=== PATIENT | male | born 1975 | race American Indian/Alaskan Native ===

== ENCOUNTER 2018-03-15 13:50 | Inpatient (IN) | payer MEDICARE ==
[2018-03-15] MEDS ORDERED: NACL 0.9% 500 ML 250 ML IV ONE (14:15)
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
[2018-03-15 14:58] LABS: Basophils % (Auto) 0.4 % (0.0-1.8); Eosinophils # (Auto) 0.1 K/mm3 (0.0-0.4); Eosinophils % (Auto) 0.8 % (0.0-4.3); Hematocrit 42.1 % (35.5-45.6); Hemoglobin 13.6 gm/dl (11.8-15.2); Lymphocytes # (Auto) 1.4 K/mm3 (1.2-5.4); Lymphocytes % (Auto) 17.9 % (13.4-35.0); Mean Corpuscular HGB Conc 32 % (32-34); Mean Corpuscular Hemoglobin 30 pg (28-32); Mean Corpuscular Volume 93 fl (84-94); Monocytes % (Auto) 12.5 % (0.0-7.3); Platelet Count 147 K/mm3 (140-440); Red Blood Count 4.53 M/mm3 (3.65-5.03)
[2018-03-15] MEDS ORDERED: MERREM 1,000 MG in NACL 0.9% 100 ML IV ONE (15:00)
[2018-03-15 15:02] LABS: INR 0.9 (0.87-1.13)
[2018-03-15 15:13] LABS: Calcium 8.9 mg/dL (8.4-10.2)
--- NOTE | 2018-03-15 15:16 | XRay Report ---
AP CHEST: HISTORY: chest pain, sepsis AP view of the chest demonstrates a normal mediastinal and cardiac contour with clear lungs and normal bony and soft tissue structures. A right IJ dual-lumen venous catheter terminates at the cavoatrial junction. IMPRESSION: Unremarkable AP chest.
--- NOTE | 2018-03-15 16:20 | History and Physical Report ---
History of Present Illness Chief complaint: positive blood cultures History of present illness: 42 YO Male with HTN, ESRD on HD(T,R,SA) presents to ED for evaluation. Pt is unable to provide detailed history, but history is provided by his . As per wift, the patient has experienced fever over the past 1 week. Pt was seen by his home health care case manager and was found to have evidence of an infected dialysis catheter. Pt has catheter removed and subsequently had a new vas cath placed in his right chest on yesterday but blood cultures grew out gram negative rods. . Pt presents to ED for evaluation. No reports of fever, chills, CP, Palpitations , NVD< syncope, trauma, skin rash, unintentional weight loss, night sweats. Pt admitted to medical floor. blood cultures ordered in ED. Past History Past Medical History: ESRD, hypertension Past Surgical History: Other (Permacath, Right foot surgery) Social history: , lives with family Family history: no significant family history (reviewed) Medications and Allergies Allergies Allergy/AdvReac Type Severity Reaction Status Date / Time No Known Allergies Allergy Unverified 03/15/18 14:03 Home Medications Medication Instructions Recorded Confirmed Last Taken Type Amlodipine Besylate [Norvasc] 5 mg PO QDAY 03/15/18 03/15/18 Unknown History Hydralazine HCl 50 mg PO TID 03/15/18 03/15/18 Unknown History Metoprolol [Lopressor] 25 mg PO Q12H 03/15/18 03/15/18 Unknown History Review of Systems Constitutional: no weight loss, no weight gain, no fever, no chills Ears, nose, mouth and throat: no ear pain, no ear discharge, no tinnitis, no decreased hearing Cardiovascular: no chest pain, no orthopnea, no palpitations, no rapid/ irregular heart beat, no edema, no syncope Respiratory: no cough, no cough with sputum, no excessive sputum, no hemoptysis Gastrointestinal: no nausea, no vomiting, no diarrhea, no constipation Genitourinary Male: no hematuria, no flank pain, no discharge, no urinary frequency, no urinary hesitancy Rectal: no pain, no incontinence Musculoskeletal: no neck stiffness, no neck pain, no shooting arm pain, no arm numbness/tingling, no low back pain, no shooting leg pain Integumentary: no rash, no pruritis, no redness, no sores, no wounds Neurological: no transient paralysis, no paralysis, no weakness, no parathesias , no numbness, no tingling, no seizures Psychiatric: no anxiety, no memory loss, no change in sleep habits, no sleep disturbances, no insomnia, no hypersomnia, no change in appetite Endocrine: no cold intolerance, no heat intolerance, no polyphagia, no excessive thirst, no polydipsia, no polyuria, no nocturia, no excessive sweating Hematologic/Lymphatic: no easy bruising, no easy bleeding, no lymphadenopathy, no lymphedema Allergic/Immunologic: no urticaria, no allergic rhinitis, no wheezing, no persistent infections, no anaphylaxis, no angioedema Exam - Constitutional Vitals: Temp Pulse Resp BP Pulse Ox 98.4 F 83 21 125/90 97 03/15/18 14:03 03/15/18 15:15 03/15/18 15:15 03/15/18 15:15 03/15/18 15:15 General appearance: Present: no acute distress, well-nourished - EENT Eyes: Present: PERRL ENT: hearing intact, clear oral mucosa - Neck Neck: Present: supple, normal ROM - Respiratory Respiratory effort: normal Respiratory: bilateral: CTA - Cardiovascular Heart Sounds: Present: S1 & S2. Absent: rub, click - Extremities Extremities: pulses symmetrical, No edema Peripheral Pulses: within normal limits - Abdominal General gastrointestinal: Present: soft, non-tender, non-distended, normal bowel sounds Male genitourinary: Present: normal - Integumentary Integumentary: Present: clear, warm, dry - Musculoskeletal Musculoskeletal: gait normal, strength equal bilaterally - Psychiatric Psychiatric: appropriate mood/affect, intact judgment & insight - Neurologic Neurologic: CNII-XII intact, moves all extremities Results - Labs CBC & Chem 7: 03/15/18 14:35 03/15/18 14:35 Labs: Abnormal lab results 03/15/18 03/15/18 Range/Units 14:35 14:35 [place] % (Auto) 12.5 H (0.0-7.3) % [place] # 1.0 H (0.0-0.8) K/mm3 Sodium 132 L (137-145) mmol/L Chloride 93.5 L (98-107) mmol/L Creatinine 5.4 H (0.8-1.5) mg/dL Assessment and Plan - Patient Problems (1) End stage renal disease Current Visit: Yes Status: Acute Plan to address problem: Nephrology consulted, dialysis as per renal team, monitor uop q shift, (2) Infection of vascular catheter Current Visit: Yes Status: Acute Qualifiers: Encounter type: initial encounter Qualified Code(s): T82.7XXA - Infection and inflammatory reaction due to other cardiac and vascular devices, implants and grafts, initial encounter Plan to address problem: Blood cultures, empiric dose of antibiotic therapy for gram negative bacteremia , CBC, Echo within 3-4 days. (3) DVT prophylaxis Current Visit: Yes Status: Acute Plan to address problem: scd to BLE while in bed.
[2018-03-15] MEDS ORDERED: ZOFRAN IV PRN (18:00)
[2018-03-15] MEDS ORDERED: TYLENOL PO PRN (18:00)
[2018-03-15] MEDS ORDERED: SODIUM CHLORIDE FLUSH SYRINGE 10 ML IV PRN (18:00)
[2018-03-15] MEDS ORDERED: PROVENTIL IH PRN (18:00)
[2018-03-15] MEDS ORDERED: NON-FORMULARY (Hydralazine Hcl [Hydralazine Hcl] 50 MG) PO SCH (20:00)
[2018-03-15] MEDS: LOPRESSOR PO SCH (21:15)
[2018-03-15] MEDS: SODIUM CHLORIDE FLUSH SYRINGE 10 ML IV SCH (23:03)
[2018-03-15] MEDS: APRESOLINE PO SCH (23:57)
[2018-03-16 05:16] LABS: Amorphous Crystals,Urine 1+; Bilirubin,Urine NEG (Negative); Blood,Urine SM (Negative); Color,Urine Yellow (Yellow); Urobilinogen,Urine < 2.0 mg/dL (<2.0)
[2018-03-16] MEDS: LOPRESSOR PO SCH ×2 (07:02→19:42)
[2018-03-16] MEDS: APRESOLINE PO SCH ×3 (07:03→22:23)
--- NOTE | 2018-03-16 07:21 | Consultation ---
History of Present Illness - Reason for Consult Consult date: 03/16/18 end stage renal disease - History of Present Illness The patient is a 42 yo male, who is well known to our service, with medical history significant for HTN and ESRD on HD (TTS) who was sent to the ER yesterday for further evaluation of positive blood culture for GNR. Patient is a poor historian. He has off and on fever for the past week. He developed rigors while on hemodialysis on 03/13 but the temperature was normal. The blood culture done on the same day came back positive for GNR. He received IV Vancomycin on 03/13. Since the dialysis catheter was not working well it was exchanged on 03/14. Denies N, V, D, abd pain, cough, SOB, CP, NARAYAN, leg swelling, dizziness, dysuria, hematuria or syncope. Past History Past Medical History: dialysis, ESRD, hypertension Medications and Allergies Allergies Allergy/AdvReac Type Severity Reaction Status Date / Time No Known Allergies Allergy Unverified 03/15/18 14:03 Home Medications Medication Instructions Recorded Confirmed Last Taken Type Amlodipine Besylate [Norvasc] 5 mg PO QDAY 03/15/18 03/15/18 Unknown History Hydralazine HCl 50 mg PO TID 03/15/18 03/15/18 Unknown History Metoprolol [Lopressor] 25 mg PO Q12H 03/15/18 03/15/18 Unknown History Active Meds: Active Medications Acetaminophen (Tylenol) 650 mg PO Q4H PRN PRN Reason: Pain MILD(1-3)/Fever >100.5/NARAYAN Albuterol (Proventil) 2.5 mg IH Q4HRT PRN PRN Reason: Shortness Of Breath Amlodipine Besylate (Norvasc) 5 mg PO QDAY [facility] Hydralazine HCl (Apresoline) 50 mg PO Q8HR [facility] Last Admin: 03/16/18 07:03 Dose: Not Given Metoprolol Tartrate (Lopressor) 25 mg PO Q12H [facility] Last Admin: 03/16/18 07:02 Dose: Not Given Ondansetron HCl (Zofran) 4 mg IV Q8H PRN PRN Reason: Nausea And Vomiting Sodium Chloride (Sodium Chloride Flush Syringe 10 Ml) 10 ml IV BID [facility] Last Admin: 03/15/18 23:03 Dose: 10 ml Sodium Chloride (Sodium Chloride Flush Syringe 10 Ml) 10 ml IV PRN PRN PRN Reason: LINE FLUSH Review of Systems Constitutional: fever, chills, sweats, no weight loss, no weight gain, no anorexia, no weakness, no poor appetite Ears, nose, mouth and throat: no epistaxis Cardiovascular: high blood pressure, no chest pain, no orthopnea, no palpitations, no edema, no syncope, no lightheadedness, no shortness of breath, no leg edema Respiratory: no cough Gastrointestinal: no abdominal pain, no nausea, no vomiting, no diarrhea, no melena Genitourinary Male: no dysuria, no hematuria Rectal: no bleeding Integumentary: no rash Neurological: no paralysis, no syncope Exam - Vital Signs Vital signs: Vital Signs Temp Pulse Resp BP Pulse Ox 98.4 F 101 H 20 120/94 99 03/15/18 14:03 03/15/18 14:03 03/15/18 14:03 03/15/18 14:03 03/15/18 14:03 - General Appearance General appearance: well-developed, well-nourished, appears stated age, other ( no distress, right IJ tunnel catheter) EENT: ATNC, PERRL, mucous membranes moist, hearing intact, vision intact Neck: Present: neck supple, trachea midline Respiratory: Clear to Ascultation Heart: regular, S1S2, no murmurs Gastrointestinal: Present: normoactive bowel sounds. Absent: tenderness, costovertebral Integumentary: no rash, warm and dry Neurologic: no focal deficit, no asterixis, alert and oriented x3, CN 3-12 intact Musculoskeletal: Present: other (no distress) Psychiatric: mood/affect appropriate, cooperative Results - Lab Results 03/15/18 14:35 03/15/18 14:35 Most recent lab results Calcium 8.9 mg/dL (8.4-10.2) 03/15/18 14:35 Assessment and Plan 1. ESRD: Continue hemodialysis three times a week. Patient is scheduled to get CT with IV contrast today. Plan to do hemodialysis later today, orders placed. 2. Gram negative bacteremia: Blood culture drawn on 03/13/2018 showed gram negative rods. ID input appreciated. 3. Hypertension: BP well controlled.
[2018-03-16] MEDS: NORVASC PO SCH ×2 (09:47→09:51)
[2018-03-16] MEDS: SODIUM CHLORIDE FLUSH SYRINGE 10 ML IV SCH ×2 (09:48→22:24)
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
[2018-03-16] MEDS ORDERED: NACL 0.9% 100 ML IV PRN (11:10)
--- NOTE | 2018-03-16 18:40 | Progress Note ---
Assessment and Plan / End stage renal disease Nephrology consulted, dialysis as per renal team / Infection of vascular catheter repeat Blood cultures, empiric dose of antibiotic therapy for gram negative bacteremia, ID consulted, plan for CT Abdomen/pelvis GNR bacteremia diagnosed as outpatient: ? source. ?HD catheter related. s/p HD catheter exchange on 03/15 as outpatient. / DVT prophylaxis scd to BLE while in bed. Physical Exam: General appearance: PT in NAD. A&XO3. Conversant. Eyes: anicteric sclerae, moist conjunctivae; no lid-lag; PERRLA HENT: Atraumatic; oropharynx clear, with moist mucous membranes and no mucosal ulcerations/no oral thrush; normal hard and soft palate. Normal external ears. Neck: Trachea midline; supple, no thyromegaly or lymphadenopathy Lungs: CTA, with normal respiratory effort and no intercostal retractions CV: RRR, S1,S2. Abdomen: Soft,NT/ND. No masses or hepatosplenomegaly. Extremities: No c/c/e. Skin: Normal temperature, turgor and texture; no rash, ulcers or subcutaneous nodules Psych: Appropriate affect, alert and oriented to person, place and time. Neuro: alert and oriented x 3. No-focal deficits. Lines: R chest HD catheter (exchanged as outpt on 03/15). Site has no erythema, tenderness or drainage. Subjective Date of service: 03/16/18 Interval history: Pt seen and examined no acute event O/n, denies any chest pain Objective - Constitutional Vitals: Vital Signs - 12hr 03/16/18 03/16/18 03/16/18 07:02 07:03 08:45 Temperature 98.7 F Pulse Rate 83 83 80 Respiratory 20 Rate Blood Pressure 113/79 113/79 124/86 O2 Sat by Pulse 100 Oximetry 03/16/18 03/16/18 03/16/18 09:51 12:09 17:00 Temperature 98.6 F 98.1 F Pulse Rate 82 84 75 Respiratory 20 18 Rate Blood Pressure 124/84 124/86 136/93 O2 Sat by Pulse 97 Oximetry 03/16/18 03/16/18 03/16/18 17:15 17:30 17:45 Temperature Pulse Rate 75 68 71 Respiratory Rate Blood Pressure 133/92 137/94 139/97 O2 Sat by Pulse Oximetry - Labs CBC & Chem 7: 03/15/18 14:35 03/15/18 14:35
[2018-03-16] MEDS: MAXIPIME 1 GM in NACL 0.9% 20 ML IV SCH (22:29)
[2018-03-17] MEDS: APRESOLINE PO SCH ×3 (05:52→22:36)
[2018-03-17] MEDS: LOPRESSOR PO SCH ×2 (06:39→22:37)
--- NOTE | 2018-03-17 08:52 | Progress Note ---
Assessment and Plan Assessment and plan: --End stage renal disease Nephrology consulted, dialysis as per renal team --Infection of vascular catheter repeat Blood cultures, empiric dose of antibiotic therapy for gram negative bacteremia, ID consulted, plan for CT Abdomen/pelvis GNR bacteremia diagnosed as outpatient: ? source. ?HD catheter related. s/p HD catheter exchange on 03/15 as outpatient. -- DVT prophylaxis scd to BLE while in bed. History Interval history: Patient seen and examined medical records reviewed Feels better no new complaints Vital signs reviewed Hospitalist Physical - Constitutional Vitals: Temp Pulse Resp BP Pulse Ox 98.5 F 85 20 127/86 99 03/17/18 08:07 03/17/18 08:07 03/17/18 08:07 03/17/18 08:07 03/17/18 08:07 General appearance: Present: no acute distress, well-nourished - EENT Eyes: Present: PERRL, EOM intact - Neck Neck: Present: supple, normal ROM - Respiratory Respiratory effort: normal Respiratory: bilateral: diminished, negative: rales, rhonchi, wheezing - Cardiovascular Rhythm: regular Heart Sounds: Present: S1 & S2 - Extremities Extremities: no ischemia, No edema - Abdominal General gastrointestinal: soft, non-tender, non-distended, normal bowel sounds - Integumentary Integumentary: Present: clear, warm - Psychiatric Psychiatric: appropriate mood/affect, cooperative - Neurologic Neurologic: CNII-XII intact, moves all extremities Results - Labs CBC & Chem 7: 03/15/18 14:35 03/15/18 14:35 Labs: Laboratory Last Values WBC 7.6 K/mm3 (4.5-11.0) 03/15/18 14:35 RBC 4.53 M/mm3 (3.65-5.03) 03/15/18 14:35 Hgb 13.6 gm/dl (11.8-15.2) 03/15/18 14:35 Hct 42.1 % (35.5-45.6) 03/15/18 14:35 MCV 93 fl (84-94) 03/15/18 14:35 MCH 30 pg (28-32) 03/15/18 14:35 MCHC 32 % (32-34) 03/15/18 14:35 RDW 15.0 % (13.2-15.2) 03/15/18 14:35 Plt Count 147 K/mm3 (140-440) 03/15/18 14:35 Lymph % (Auto) 17.9 % (13.4-35.0) 03/15/18 14:35 [place] % (Auto) 12.5 % (0.0-7.3) H 03/15/18 14:35 Eos % (Auto) 0.8 % (0.0-4.3) 03/15/18 14:35 Baso % (Auto) 0.4 % (0.0-1.8) 03/15/18 14:35 Lymph # 1.4 K/mm3 (1.2-5.4) 03/15/18 14:35 [place] # 1.0 K/mm3 (0.0-0.8) H 03/15/18 14:35 Eos # 0.1 K/mm3 (0.0-0.4) 03/15/18 14:35 Baso # 0.0 K/mm3 (0.0-0.1) 03/15/18 14:35 Seg Neutrophils % 68.4 % (40.0-70.0) 03/15/18 14:35 Seg Neutrophils # 5.2 K/mm3 (1.8-7.7) 03/15/18 14:35 PT 12.6 Sec. (12.2-14.9) 03/15/18 14:35 INR 0.90 (0.87-1.13) 03/15/18 14:35 VBG pH 7.361 (7.320-7.420) 03/15/18 14:35 Sodium 132 mmol/L (137-145) L 03/15/18 14:35 Potassium 3.8 mmol/L (3.6-5.0) 03/15/18 14:35 Chloride 93.5 mmol/L (98-107) L 03/15/18 14:35 Carbon Dioxide 25 mmol/L (22-30) 03/15/18 14:35 Anion Gap 17 mmol/L 03/15/18 14:35 BUN 17 mg/dL (9-20) 03/15/18 14:35 Creatinine 5.4 mg/dL (0.8-1.5) H 03/15/18 14:35 Estimated GFR 12 ml/min 03/15/18 14:35 BUN/Creatinine Ratio 3 % 03/15/18 14:35 Glucose 95 mg/dL (75-100) 03/15/18 14:35 Lactic Acid 0.40 mmol/L (0.7-2.0) L 03/15/18 17:18 Calcium 8.9 mg/dL (8.4-10.2) 03/15/18 14:35 Total Bilirubin 0.20 mg/dL (0.1-1.2) 03/15/18 14:35 AST 15 units/L (5-40) 03/15/18 14:35 ALT 12 units/L (7-56) 03/15/18 14:35 Alkaline Phosphatase 68 units/L (35-129) 03/15/18 14:35 Total Protein 8.0 g/dL (6.3-8.2) 03/15/18 14:35 Albumin 4.0 g/dL (3.9-5) 03/15/18 14:35 Albumin/Globulin Ratio 1.0 % 03/15/18 14:35 Urine Color Yellow (Yellow) 03/15/18 04:30 Urine Turbidity Clear (Clear) 03/15/18 04:30 Urine pH 6.0 (5.0-7.0) 03/15/18 04:30 Ur Specific [place] 1.005 (1.003-1.030) 03/15/18 04:30 Urine Protein 30 mg/dl mg/dL (Negative) 03/15/18 04:30 Urine Glucose (UA) Neg mg/dL (Negative) 03/15/18 04:30 Urine Ketones Neg mg/dL (Negative) 03/15/18 04:30 Urine Blood Sm (Negative) 03/15/18 04:30 Urine Nitrite Neg (Negative) 03/15/18 04:30 Urine Bilirubin Neg (Negative) 03/15/18 04:30 Urine Urobilinogen < 2.0 mg/dL (<2.0) 03/15/18 04:30 Ur Leukocyte Esterase Neg (Negative) 03/15/18 04:30 Urine WBC (Auto) 2.0 /HPF (0.0-6.0) 03/15/18 04:30 Urine RBC (Auto) 3.0 /HPF (0.0-6.0) 03/15/18 04:30 U Epithel Cells (Auto) < 1.0 /HPF (0-13.0) 03/15/18 04:30 Amorphous Crystals 1+ 03/15/18 04:30
--- NOTE | 2018-03-17 09:19 | Progress Note ---
Assessment and Plan ESRD - Pt says his outpt HD schedule is TTS, would therefore dialyze today per schedule Lytes - Sodium-modeling on HD Bacteremia - S/p permcath exchange. Abx per ID Subjective Date of service: 03/17/18 Interval history: No complaints Objective - Vital Signs Vital signs: Vital Signs - 12hr 03/16/18 03/16/18 03/16/18 22:00 22:23 23:33 Temperature 98.5 F Pulse Rate 75 87 Respiratory 16 Rate Blood Pressure 147/105 138/103 O2 Sat by Pulse 96 99 Oximetry 03/17/18 03/17/18 03/17/18 03:33 05:45 05:52 Temperature 98.8 F Pulse Rate 77 76 76 Respiratory 16 Rate Blood Pressure 106/76 115/84 115/84 O2 Sat by Pulse 97 98 Oximetry 03/17/18 03/17/18 06:39 08:07 Temperature 98.5 F Pulse Rate 76 85 Respiratory 20 Rate Blood Pressure 115/84 127/86 O2 Sat by Pulse 99 Oximetry - General Appearance General appearance: other (Awake & alert. RIJ Permcath in place) EENT: PERRL Neck: no JVD Respiratory: Present: Other (Good air entry) Cardiology: regular, S1S2 Gastrointestinal: normal Neurologic: no focal deficit - Lab 03/15/18 14:35 03/15/18 14:35 Most recent lab results Calcium 8.9 mg/dL (8.4-10.2) 03/15/18 14:35
[2018-03-17] MEDS ORDERED: HEPARIN IV PRN (09:20)
[2018-03-17] MEDS ORDERED: PROCRIT IV PRN (09:20)
[2018-03-17] MEDS ORDERED: NACL 0.9% 100 ML IV PRN (09:20)
[2018-03-17] MEDS ORDERED: HEPARIN 10,000 UNITS/10 ML IV PRN (09:20)
[2018-03-17] MEDS: NORVASC PO SCH (10:21)
[2018-03-17] MEDS: SODIUM CHLORIDE FLUSH SYRINGE 10 ML IV SCH ×2 (10:22→22:35)
[2018-03-17] MEDS: MAXIPIME 1 GM in NACL 0.9% 20 ML IV SCH (15:22)
[2018-03-17] MEDS ORDERED: NACL 0.9 (PRIMING MACHINE ONLY DIALYSIS) MC ONE (17:36)
[2018-03-18] MEDS: APRESOLINE PO SCH (06:05)
[2018-03-18 06:27] LABS: Basophils # (Auto) 0.1 K/mm3 (0.0-0.1); Basophils % (Auto) 0.7 % (0.0-1.8); Eosinophils # (Auto) 0.1 K/mm3 (0.0-0.4); Eosinophils % (Auto) 1.6 % (0.0-4.3); Hematocrit 40.3 % (35.5-45.6); Hemoglobin 13.1 gm/dl (11.8-15.2); Lymphocytes # (Auto) 1.7 K/mm3 (1.2-5.4); Lymphocytes % (Auto) 23.1 % (13.4-35.0); Mean Corpuscular HGB Conc 32 % (32-34); Mean Corpuscular Hemoglobin 30 pg (28-32); Mean Corpuscular Volume 92 fl (84-94); Monocytes # (Auto) 0.8 K/mm3 (0.0-0.8); Monocytes % (Auto) 10.5 % (0.0-7.3); Platelet Count 187 K/mm3 (140-440); Red Blood Count 4.36 M/mm3 (3.65-5.03); Red Cell Distribution Width 15.1 % (13.2-15.2)
[2018-03-18 07:06] LABS: Albumin 3.7 g/dL (3.9-5)
[2018-03-18] MEDS: LOPRESSOR PO SCH ×2 (09:45→22:38)
[2018-03-18] MEDS: NORVASC PO SCH (09:46)
[2018-03-18] MEDS: SODIUM CHLORIDE FLUSH SYRINGE 10 ML IV SCH ×2 (10:00→22:39)
--- NOTE | 2018-03-18 11:23 | Progress Note ---
Assessment and Plan ESRD - Tolerated HD yesterday, Next HD Lytes - F/u labs Bacteremia - S/p permcath exchange. Abx per ID Subjective Date of service: 03/18/18 Interval history: No complaints Objective - Vital Signs Vital signs: Vital Signs - 12hr 03/18/18 03/18/18 03/18/18 04:14 06:05 07:39 Temperature 98.7 F 98.3 F Pulse Rate 80 72 73 Respiratory 16 19 Rate Blood Pressure 108/78 110/70 113/75 O2 Sat by Pulse 98 99 Oximetry 03/18/18 03/18/18 09:45 09:46 Temperature Pulse Rate 73 73 Respiratory Rate Blood Pressure 113/75 113/75 O2 Sat by Pulse Oximetry - General Appearance General appearance: other (Awake &alert) Neck: no JVD Respiratory: Present: Clear to Ascultation Cardiology: regular, S1S2 Gastrointestinal: normal - Lab 03/18/18 05:39 03/18/18 05:39 Most recent lab results Calcium 9.0 mg/dL (8.4-10.2) 03/18/18 05:39 Phosphorus 4.20 mg/dL (2.5-4.5) 03/18/18 05:39 Magnesium 1.90 mg/dL (1.7-2.3) 03/18/18 05:39
[2018-03-18] MEDS: MAXIPIME 1 GM in NACL 0.9% 20 ML IV SCH (16:03)
--- NOTE | 2018-03-18 19:20 | Progress Note ---
Assessment and Plan Assessment and plan: --End stage renal disease Nephrology following dialysis per schedule[TTS] --Infection of vascular catheter; diagnosis outpatient prior to admission repeat Blood cultures negative to date empiric dose of antibiotic therapy for gram negative bacteremia, ID following , continue cefepime , CT Abdomen/pelvis reviewed GNR bacteremia diagnosed as outpatient: ? source. ?HD catheter related. s/p HD catheter exchange on 03/15 as outpatient. -- DVT prophylaxis Heparin renal dose Results and recommendations noted and appreciated Closely monitor History Interval history: Patient seen and examined medical records reviewed Patient feels better no new complaints No new events reported by the nursing vital signs reviewed stable Hospitalist Physical - Constitutional Vitals: Temp Pulse Resp BP Pulse Ox 98.7 F 78 19 109/74 98 03/18/18 14:52 03/18/18 14:52 03/18/18 14:52 03/18/18 14:52 03/18/18 14:52 General appearance: Present: no acute distress, well-nourished - EENT Eyes: Present: PERRL, EOM intact - Neck Neck: Present: supple, normal ROM - Respiratory Respiratory effort: normal Respiratory: bilateral: diminished, negative: rales, rhonchi, wheezing - Cardiovascular Rhythm: regular Heart Sounds: Present: S1 & S2 - Extremities Extremities: no ischemia, No edema - Abdominal General gastrointestinal: soft, non-tender, non-distended, normal bowel sounds - Integumentary Integumentary: Present: clear, warm - Psychiatric Psychiatric: appropriate mood/affect, cooperative - Neurologic Neurologic: CNII-XII intact, moves all extremities Results - Labs CBC & Chem 7: 03/18/18 05:39 03/19/18 05:45 Labs: Laboratory Last Values WBC 7.5 K/mm3 (4.5-11.0) 03/18/18 05:39 RBC 4.36 M/mm3 (3.65-5.03) 03/18/18 05:39 Hgb 13.1 gm/dl (11.8-15.2) 03/18/18 05:39 Hct 40.3 % (35.5-45.6) 03/18/18 05:39 MCV 92 fl (84-94) 03/18/18 05:39 MCH 30 pg (28-32) 03/18/18 05:39 MCHC 32 % (32-34) 03/18/18 05:39 RDW 15.1 % (13.2-15.2) 03/18/18 05:39 Plt Count 187 K/mm3 (140-440) 03/18/18 05:39 Lymph % (Auto) 23.1 % (13.4-35.0) 03/18/18 05:39 [place] % (Auto) 10.5 % (0.0-7.3) H 03/18/18 05:39 Eos % (Auto) 1.6 % (0.0-4.3) 03/18/18 05:39 Baso % (Auto) 0.7 % (0.0-1.8) 03/18/18 05:39 Lymph # 1.7 K/mm3 (1.2-5.4) 03/18/18 05:39 [place] # 0.8 K/mm3 (0.0-0.8) 03/18/18 05:39 Eos # 0.1 K/mm3 (0.0-0.4) 03/18/18 05:39 Baso # 0.1 K/mm3 (0.0-0.1) 03/18/18 05:39 Seg Neutrophils % 64.1 % (40.0-70.0) 03/18/18 05:39 Seg Neutrophils # 4.8 K/mm3 (1.8-7.7) 03/18/18 05:39 PT 12.6 Sec. (12.2-14.9) 03/15/18 14:35 INR 0.90 (0.87-1.13) 03/15/18 14:35 VBG pH 7.361 (7.320-7.420) 03/15/18 14:35 Sodium 142 mmol/L (137-145) D 03/18/18 05:39 Potassium 4.5 mmol/L (3.6-5.0) 03/18/18 05:39 Chloride 99.4 mmol/L (98-107) 03/18/18 05:39 Carbon Dioxide 29 mmol/L (22-30) 03/18/18 05:39 Anion Gap 18 mmol/L 03/18/18 05:39 BUN 24 mg/dL (9-20) H 03/18/18 05:39 Creatinine 6.0 mg/dL (0.8-1.5) H 03/18/18 05:39 Estimated GFR 12 ml/min 03/18/18 05:39 BUN/Creatinine Ratio 4 % 03/18/18 05:39 Glucose 85 mg/dL (75-100) 03/18/18 05:39 Lactic Acid 0.40 mmol/L (0.7-2.0) L 03/15/18 17:18 Calcium 9.0 mg/dL (8.4-10.2) 03/18/18 05:39 Phosphorus 4.20 mg/dL (2.5-4.5) 03/18/18 05:39 Magnesium 1.90 mg/dL (1.7-2.3) 03/18/18 05:39 Total Bilirubin 0.20 mg/dL (0.1-1.2) 03/18/18 05:39 AST 10 units/L (5-40) 03/18/18 05:39 ALT 8 units/L (7-56) 03/18/18 05:39 Alkaline Phosphatase 55 units/L (35-129) 03/18/18 05:39 Total Protein 6.9 g/dL (6.3-8.2) 03/18/18 05:39 Albumin 3.7 g/dL (3.9-5) L 03/18/18 05:39 Albumin/Globulin Ratio 1.2 % 03/18/18 05:39 Urine Color Yellow (Yellow) 03/15/18 04:30 Urine Turbidity Clear (Clear) 03/15/18 04:30 Urine pH 6.0 (5.0-7.0) 03/15/18 04:30 Ur Specific [place] 1.005 (1.003-1.030) 03/15/18 04:30 Urine Protein 30 mg/dl mg/dL (Negative) 03/15/18 04:30 Urine Glucose (UA) Neg mg/dL (Negative) 03/15/18 04:30 Urine Ketones Neg mg/dL (Negative) 03/15/18 04:30 Urine Blood Sm (Negative) 03/15/18 04:30 Urine Nitrite Neg (Negative) 03/15/18 04:30 Urine Bilirubin Neg (Negative) 03/15/18 04:30 Urine Urobilinogen < 2.0 mg/dL (<2.0) 03/15/18 04:30 Ur Leukocyte Esterase Neg (Negative) 03/15/18 04:30 Urine WBC (Auto) 2.0 /HPF (0.0-6.0) 03/15/18 04:30 Urine RBC (Auto) 3.0 /HPF (0.0-6.0) 03/15/18 04:30 U Epithel Cells (Auto) < 1.0 /HPF (0-13.0) 03/15/18 04:30 Amorphous Crystals 1+ 03/15/18 04:30
[2018-03-18] MEDS: HEPARIN SUB-Q SCH (22:28)
[2018-03-19] MEDS: LOPRESSOR PO SCH ×2 (06:35→20:12)
[2018-03-19 06:43] LABS: Calcium 8.7 mg/dL (8.4-10.2)
--- NOTE | 2018-03-19 07:00 | Progress Note ---
Assessment and Plan 1. ESRD: Continue hemodialysis three times a week. Patient was last dialyzed on 03/16/2018. Plan to do hemodialysis tomorrow at the outpatient center. 2. Gram negative bacteremia: Final results: Entrobacter Clocae. Sensitive to Zosyn, Ceftazidine, Ceftriaxone, Cefepime, Bactrim, Levofloxacin, Imipenem, Gentamicin, Tobramycin and Ciprofloxacin. D/w . 3. Hypertension: BP well controlled. Subjective Date of service: 03/19/18 Interval history: Patient is doing ok. Objective - Vital Signs Vital signs: Vital Signs - 12hr 03/18/18 03/18/18 03/18/18 19:55 22:38 23:39 Temperature 98.7 F 98.6 F Pulse Rate 83 81 84 Respiratory 18 19 Rate Blood Pressure 127/83 123/87 119/88 O2 Sat by Pulse 97 97 Oximetry 03/19/18 03/19/18 04:07 06:35 Temperature 98.6 F Pulse Rate 80 76 Respiratory 16 Rate Blood Pressure 118/79 112/74 O2 Sat by Pulse 96 Oximetry - General Appearance General appearance: well-developed, well-nourished, appears stated age, other ( no distress, right IJ tunnel catheter) EENT: ATNC, PERRL, hearing intact, vision intact Neck: supple Respiratory: Present: Clear to Ascultation Cardiology: regular, S1S2, no murmurs Gastrointestinal: normoactive bowel sounds, no tenderness Integumentary: no rash Neurologic: no focal deficit, no asterixis, alert and oriented x3 Musculoskeletal: other (no edema) Psychiatric: cooperative - Lab 03/18/18 05:39 03/19/18 05:45 Most recent lab results Calcium 8.7 mg/dL (8.4-10.2) 03/19/18 05:45 Phosphorus 4.20 mg/dL (2.5-4.5) 03/18/18 05:39 Magnesium 1.90 mg/dL (1.7-2.3) 03/18/18 05:39
--- NOTE | 2018-03-19 09:17 | Progress Note ---
Assessment and Plan Assessment and plan: --End stage renal disease Nephrology consulted, dialysis as per renal team --Infection of vascular catheter repeat Blood cultures, empiric dose of antibiotic therapy for gram negative bacteremia, ID following ,on cefepime , ID change antibiotics to Cipro 500 daily GNR bacteremia diagnosed as outpatient: ? source. ?HD catheter related. s/p HD catheter exchange on 03/15 as outpatient. --Abnormal CT abdomen findings; abnormal density left side of the paraspinal musculature Possible hematoma syndrome or abscess Check abdominal ultrasound -- DVT prophylaxis Heparin renal dose Closely monitor the patient Follow-up abdominal ultrasound Possible discharge home tomorrow if stable History Interval history: Patient seen and examined medical records reviewed No new events reported Patient feels better no new complaints Patient is on cefepime, for catheter related gram-negative infection[outpatient prior to admission] Vital signs reviewed Initially patient was cleared for discharge by ID, however abdominal CT Findings of normal, further evaluation with abdominal ultrasound DC held, continue Cipro and other supportive care Hospitalist Physical - Constitutional Vitals: Temp Pulse Resp BP Pulse Ox 98.6 F 64 20 124/85 98 03/19/18 07:39 03/19/18 07:39 03/19/18 07:39 03/19/18 07:39 03/19/18 07:39 General appearance: Present: no acute distress, well-nourished - EENT Eyes: Present: PERRL, EOM intact - Neck Neck: Present: supple, normal ROM - Respiratory Respiratory effort: normal Respiratory: bilateral: diminished, negative: rales, rhonchi, wheezing - Cardiovascular Rhythm: regular Heart Sounds: Present: S1 & S2 - Extremities Extremities: no ischemia, No edema - Abdominal General gastrointestinal: soft, non-tender, non-distended, normal bowel sounds - Integumentary Integumentary: Present: clear, warm - Psychiatric Psychiatric: appropriate mood/affect, cooperative - Neurologic Neurologic: CNII-XII intact, moves all extremities Results - Labs CBC & Chem 7: 03/18/18 05:39 03/19/18 05:45 Labs: Laboratory Last Values WBC 7.5 K/mm3 (4.5-11.0) 03/18/18 05:39 RBC 4.36 M/mm3 (3.65-5.03) 03/18/18 05:39 Hgb 13.1 gm/dl (11.8-15.2) 03/18/18 05:39 Hct 40.3 % (35.5-45.6) 03/18/18 05:39 MCV 92 fl (84-94) 03/18/18 05:39 MCH 30 pg (28-32) 03/18/18 05:39 MCHC 32 % (32-34) 03/18/18 05:39 RDW 15.1 % (13.2-15.2) 03/18/18 05:39 Plt Count 187 K/mm3 (140-440) 03/18/18 05:39 Lymph % (Auto) 23.1 % (13.4-35.0) 03/18/18 05:39 [place] % (Auto) 10.5 % (0.0-7.3) H 03/18/18 05:39 Eos % (Auto) 1.6 % (0.0-4.3) 03/18/18 05:39 Baso % (Auto) 0.7 % (0.0-1.8) 03/18/18 05:39 Lymph # 1.7 K/mm3 (1.2-5.4) 03/18/18 05:39 [place] # 0.8 K/mm3 (0.0-0.8) 03/18/18 05:39 Eos # 0.1 K/mm3 (0.0-0.4) 03/18/18 05:39 Baso # 0.1 K/mm3 (0.0-0.1) 03/18/18 05:39 Seg Neutrophils % 64.1 % (40.0-70.0) 03/18/18 05:39 Seg Neutrophils # 4.8 K/mm3 (1.8-7.7) 03/18/18 05:39 PT 12.6 Sec. (12.2-14.9) 03/15/18 14:35 INR 0.90 (0.87-1.13) 03/15/18 14:35 VBG pH 7.361 (7.320-7.420) 03/15/18 14:35 Sodium 142 mmol/L (137-145) 03/19/18 05:45 Potassium 4.4 mmol/L (3.6-5.0) 03/19/18 05:45 Chloride 101.4 mmol/L (98-107) 03/19/18 05:45 Carbon Dioxide 24 mmol/L (22-30) 03/19/18 05:45 Anion Gap 21 mmol/L 03/19/18 05:45 BUN 42 mg/dL (9-20) H 03/19/18 05:45 Creatinine 7.6 mg/dL (0.8-1.5) H 03/19/18 05:45 Estimated GFR 9 ml/min 03/19/18 05:45 BUN/Creatinine Ratio 6 % 03/19/18 05:45 Glucose 100 mg/dL (75-100) 03/19/18 05:45 Lactic Acid 0.40 mmol/L (0.7-2.0) L 03/15/18 17:18 Calcium 8.7 mg/dL (8.4-10.2) 03/19/18 05:45 Phosphorus 4.20 mg/dL (2.5-4.5) 03/18/18 05:39 Magnesium 1.90 mg/dL (1.7-2.3) 03/18/18 05:39 Total Bilirubin 0.20 mg/dL (0.1-1.2) 03/18/18 05:39 AST 10 units/L (5-40) 03/18/18 05:39 ALT 8 units/L (7-56) 03/18/18 05:39 Alkaline Phosphatase 55 units/L (35-129) 03/18/18 05:39 Total Protein 6.9 g/dL (6.3-8.2) 03/18/18 05:39 Albumin 3.7 g/dL (3.9-5) L 03/18/18 05:39 Albumin/Globulin Ratio 1.2 % 03/18/18 05:39 Urine Color Yellow (Yellow) 03/15/18 04:30 Urine Turbidity Clear (Clear) 03/15/18 04:30 Urine pH 6.0 (5.0-7.0) 03/15/18 04:30 Ur Specific [place] 1.005 (1.003-1.030) 03/15/18 04:30 Urine Protein 30 mg/dl mg/dL (Negative) 03/15/18 04:30 Urine Glucose (UA) Neg mg/dL (Negative) 03/15/18 04:30 Urine Ketones Neg mg/dL (Negative) 03/15/18 04:30 Urine Blood Sm (Negative) 03/15/18 04:30 Urine Nitrite Neg (Negative) 03/15/18 04:30 Urine Bilirubin Neg (Negative) 03/15/18 04:30 Urine Urobilinogen < 2.0 mg/dL (<2.0) 03/15/18 04:30 Ur Leukocyte Esterase Neg (Negative) 03/15/18 04:30 Urine WBC (Auto) 2.0 /HPF (0.0-6.0) 03/15/18 04:30 Urine RBC (Auto) 3.0 /HPF (0.0-6.0) 03/15/18 04:30 U Epithel Cells (Auto) < 1.0 /HPF (0-13.0) 03/15/18 04:30 Amorphous Crystals 1+ 03/15/18 04:30
--- NOTE | 2018-03-19 09:17 | Progress Note ---
Assessment and Plan Assessment: 1) Enterobacter bacteremia diagnosed as outpatient: ? source. ?HD catheter related. -s/p HD catheter exchange on 03/15 as outpatient. -03/12 HD center blood cx + Enterobacter cloacae sens to fortaz, gentamicin and levaquin/cipro -03/15 blood cx negative -CT 03/16 pending 2) ESRD on HD Plan: -Stop cefepime -Start ciprofloxacin 500 mg PO qday total 14 days until 03/29/18 -obtain survaillance blood cx a week after finishing po cipro on HD Ok to D/C from ID stand point. I am signing off Discussed with Dr Cruz Thank you for your consultation, will follow up with you. Paloma Ochoa MD Infectious Diseases Specialist [facility] ([facility]) M [phone] Subjective Date of service: 03/19/18 Principal diagnosis: Enterobacter bacteremia Interval history: Feels better. No complaints. No fever Microbiology: Blood cultures: 03/15 pending 03/12 HD center blood cx + Enterobacter cloacae sens to fortaz, gentamicin and levaquin/cipro Current Antimicrobials: Meropenem x 1 03/15 Objective - Exam Narrative Exam: Narrative exam: General appearance: PT in NAD. A&XO3. Conversant. Eyes: anicteric sclerae, moist conjunctivae; no lid-lag; PERRLA HENT: Atraumatic; oropharynx clear, with moist mucous membranes and no mucosal ulcerations/no oral thrush; normal hard and soft palate. Normal external ears. Neck: Trachea midline; supple, no thyromegaly or lymphadenopathy Lungs: CTA, with normal respiratory effort and no intercostal retractions CV: RRR Abdomen: Soft,NT/ND. No masses or hepatosplenomegaly. Extremities: No c/c/e. Skin: Normal temperature, turgor and texture; no rash, ulcers or subcutaneous nodules Psych: Appropriate affect, alert and oriented to person, place and time. Neuro: alert and oriented x 3. No-focal deficits. Lines: R chest HD catheter (exchanged as outpt on 03/15). Site has no erythema, tenderness or drainage. - Constitutional Vitals: Vital Signs Temp Pulse Resp BP Pulse Ox 98.6 F 64 20 124/85 98 03/19/18 07:39 03/19/18 07:39 03/19/18 07:39 03/19/18 07:39 03/19/18 07:39 Temperature -Last 24 Hours Temperature 98.6 F Temperature 98.6 F Temperature 98.6 F Temperature 98.7 F Temperature 98.7 F Temperature 98.5 F - Labs CBC & Chem 7: 03/18/18 05:39 03/19/18 05:45 Labs: Abnormal lab results 03/19/18 Range/Units 05:45 BUN 42 H (9-20) mg/dL Creatinine 7.6 H (0.8-1.5) mg/dL
[2018-03-19] MEDS: NORVASC PO SCH (10:08)
[2018-03-19] MEDS: HEPARIN SUB-Q SCH ×2 (10:08→22:33)
[2018-03-19] MEDS: SODIUM CHLORIDE FLUSH SYRINGE 10 ML IV SCH ×2 (10:09→22:33)
--- NOTE | 2018-03-19 11:55 | Discharge Summary ---
Providers - Providers Date of Admission: 03/15/18 18:00 Date of discharge: 03/20/18 Attending physician: ELANA RODRIGUEZ Primary care physician: FABRICE COFFMAN MD Hospitalization Condition: Stable Disposition: DC-01 TO HOME OR SELFCARE Time spent for discharge: 32 min Core Measure Documentation - Palliative Care Palliative Care/ Comfort Measures: Not Applicable - Core Measures Any of the following diagnoses?: none Exam - Constitutional Vitals: Temp Pulse Resp BP Pulse Ox 98.6 F 64 20 124/85 98 03/19/18 07:39 03/19/18 07:39 03/19/18 07:39 03/19/18 07:39 03/19/18 07:39 General appearance: Present: no acute distress, well-nourished - EENT Eyes: Present: PERRL, EOM intact - Neck Neck: Present: supple, normal ROM - Respiratory Respiratory effort: normal Respiratory: bilateral: diminished, negative: rales, rhonchi, wheezing - Cardiovascular Rhythm: regular Heart Sounds: Present: S1 & S2 - Extremities Extremities: no ischemia, No edema - Abdominal General gastrointestinal: Present: soft, non-tender, non-distended, normal bowel sounds - Integumentary Integumentary: Present: clear, warm - Musculoskeletal Musculoskeletal: strength equal bilaterally - Psychiatric Psychiatric: appropriate mood/affect, cooperative - Neurologic Neurologic: CNII-XII intact, moves all extremities Plan Activity: advance as tolerated Diet: renal Additional Instructions: Follow renal/HD per scheduled TTS. Patient strongly advised to comply with hemodialysis,. medications and diet and follow-up visits. CT abdomen and pelvis; and 4-6 weeks[follow-up left paraspinal density ] to be followed by PMD. Surveillance blood cultures in one week after finishing Cipro; during hemodialysis per renal Follow up with: FABRICE COFFMAN MD [Primary Care Provider] - 7 Days CASPER PLASENCIA MD [Staff Physician] - 7 Days RABIA LUEVANO MD [Staff Physician] - 7 Days Prescriptions: Ciprofloxacin HCl [Ciprofloxacin TAB] 500 mg PO DAILY #9 tablet
--- NOTE | 2018-03-19 14:24 | Cat Scan Report ---
FINAL REPORT PROCEDURE: CT ABDOMEN PELVIS W CON TECHNIQUE: Computerized axial tomography of the abdomen and pelvis was performed after the IV injection of iodinated nonionic contrast. HISTORY: GNR bacteremia COMPARISON: No prior studies are available for comparison. FINDINGS: Lower Lung jon: Minimal dependent atelectasis. Lung bases otherwise are clear. Upper Abdomen: The liver, the gallbladder, the adrenal glands, the pancreas and spleen. Kidneys, Ureters and Urinary bladder: There is an intermediate dense 14 millimeter nodule in the midportion of the left kidney laterally with a density of 49 Hounsfield units. This is more dense than expected for a simple cyst. There is an adjacent simple cyst measuring 12 millimeters in the lower 3rd of the left kidney. Kidneys otherwise are unremarkable. There is no hydronephrosis. The ureters are not distended. No ureteral calculi are seen. Urinary bladder is only partially filled and shows no focal abnormality. Retroperitoneum: Mild atherosclerotic changes are seen in the abdominal aorta and iliac arteries.. No aneurysm is visualized. Nonspecific subcentimeter lymph nodes are seen in the retroperitoneum. No pathologically enlarged lymph nodes are identified. Bowel: Bowel loops are unremarkable. No focal abnormalities are seen. No evidence of bowel obstruction ascites or free intraperitoneal gas. The appendix is not visualized. No inflammatory changes are seen in the right lower quadrant. Reproductive organs: Prostate gland does not appear to be enlarged. Other: No acute bony abnormalities are identified. There is a oval density projecting posterior to paraspinal musculature posteriorly just above the pelvis. This is seen on axial image 62 series 2 image and sagittal reconstruction image 76 series 601. This measures 3 centimeters transverse, 11.5 millimeter AP and 3.6 centimeter craniocaudal dimension. This could represent hematoma. I cannot exclude an abscess or necrotic mass. IMPRESSION: Abnormal density seen posterior to the left side of the paraspinal musculature inferiorly. Please see above image reference numbers. This could represent hematoma or seroma. I cannot exclude a small abscess or necrotic mass. Intermediate dense nodule left kidney. This is also nonspecific. Could represent a hemorrhagic cyst or an infected cyst. I cannot exclude a small mass. Consider further characterization with ultrasound. A smaller adjacent simple cyst is also present.
[2018-03-19] MEDS: MAXIPIME 1 GM in NACL 0.9% 20 ML IV SCH (14:44)
--- NOTE | 2018-03-19 18:04 | Ultrasound Report ---
FINAL REPORT PROCEDURE: US ABDOMEN COMPLETE TECHNIQUE: Real-time sonography in multiple planes of the abdomen was performed with image documentation. CPT 37226 HISTORY: CT scan of the abdomen and pelvis dated 03/16/2018. COMPARISON: No prior studies are available for comparison. FINDINGS: Liver: Normal size and echotexture with no evidence of cystic or solid mass lesions. Gallbladder: Fluid filled. No gallstones, wall thickening, pericholecystic fluid, or sonographic Soni's sign. Gallbladder wall thickness 1.6 mm. Common bile duct 2.2 mm. Intrahepatic bile ducts: Normal caliber . Extrahepatic bile ducts: Normal caliber. Pancreas: Normal as visualized with suboptimal depiction of the pancreatic tail. Aorta: Visualized portions appear normal. IVC: Visualized portions appear normal. RIGHT kidney: Normal echotexture. No focal renal mass, calculus, or hydronephrosis. 8.2 x 4.3 x 4.5 cm, cortical thickness 1.1 cm. LEFT kidney: 9.3 x 4.8 x 4.7 cm, cortical thickness 1.1 cm. 2 hypoechoic areas in the left kidney, demographic information obscures measurements and hybrid technologist did not put measurements on the tech sheet. These are felt to correspond to areas of low attenuation seen in the left kidney on CT scan, with the larger one having possible subtle internal septation. Spleen: Normal size and echotexture. No focal lesions. 8.5 cm. Intraperitoneal fluid: None . Other: None . IMPRESSION: Area of soft tissue density about the paraspinous muscle not included on exam. Smaller left renal lesion felt to most likely represent simple cyst. More difficult to characterize larger lesion, may have subtle septations. Consider could represent complex cyst, but similar to CT scan difficult to completely exclude small cystic mass. Demographic information obscured measurements and technologist did not include measurements of these lesions on tech sheet. Recommend attention on followup CT scan or MRI if there is continued clinical concern (and if patient has no contraindication to MRI).
[2018-03-19] MEDS ORDERED: PERCOCET 5/325 PO PRN (22:34)
[2018-03-20] MEDS: LOPRESSOR PO SCH (08:00)
[2018-03-20] MEDS ORDERED: NACL 0.9% 100 ML IV PRN (08:11)
--- NOTE | 2018-03-20 08:11 | Progress Note ---
Assessment and Plan 1. ESRD: Continue hemodialysis three times a week. Hemodialysis today, orders placed. 2. Gram negative bacteremia: Final results: Enterobacter Clocae. Sensitive to Zosyn, Ceftazidine, Ceftriaxone, Cefepime, Bactrim, Levofloxacin, Imipenem, Gentamicin, Tobramycin and Ciprofloxacin. Patient is on IV Cefepime. 3. Hypertension: BP well controlled. 4. Left kidney mass: Patient to follow with Urologist in the Office. Subjective Date of service: 03/20/18 Principal diagnosis: Enterobacter bacteremia Interval history: Patient is doing ok. Objective - Vital Signs Vital signs: Vital Signs - 12hr 03/19/18 03/19/18 03/20/18 20:12 22:43 00:26 Temperature 98.2 F Pulse Rate 75 61 Respiratory 16 18 Rate Blood Pressure 122/88 136/80 O2 Sat by Pulse 98 Oximetry 03/20/18 03/20/18 01:26 02:55 Temperature 97.8 F Pulse Rate 66 Respiratory 18 16 Rate Blood Pressure 115/75 O2 Sat by Pulse 96 Oximetry - General Appearance General appearance: well-developed, well-nourished, appears stated age, other ( no distress, right IJ tunnel catheter) EENT: ATNC, PERRL, hearing intact, vision intact Neck: supple Respiratory: Present: Clear to Ascultation Cardiology: regular, S1S2, no murmurs Gastrointestinal: normoactive bowel sounds, no tenderness Integumentary: no rash Neurologic: no focal deficit, no asterixis, alert and oriented x3 Musculoskeletal: other (no edema) - Lab 03/18/18 05:39 03/19/18 05:45 Most recent lab results Calcium 8.7 mg/dL (8.4-10.2) 03/19/18 05:45 Phosphorus 4.20 mg/dL (2.5-4.5) 03/18/18 05:39 Magnesium 1.90 mg/dL (1.7-2.3) 03/18/18 05:39
[2018-03-20] MEDS: NORVASC PO SCH (10:00)
[2018-03-20] MEDS: SODIUM CHLORIDE FLUSH SYRINGE 10 ML IV SCH (10:00)
[2018-03-20] MEDS: HEPARIN SUB-Q SCH (10:00)
--- NOTE | 2018-03-20 10:06 | Progress Note ---
Assessment and Plan Assessment: 1) Enterobacter bacteremia diagnosed as outpatient: ? source. ?HD catheter related. -s/p HD catheter exchange on 03/15 as outpatient. -03/12 HD center blood cx + Enterobacter cloacae sens to fortaz, gentamicin and levaquin/cipro -03/15 blood cx negative -CT abd and pelvis w contrast 03/16/18 showed abnormal density 3x11.5x3.6 cm in the left side of paraspinal musculature inferiorly ? hematoma ? seroma ? abscess. 2) ESRD on HD Plan: -continue ciprofloxacin 500 mg PO qday total 14 days until 03/29/18 -obtain survaillance blood cx a week after finishing po cipro on HD - discussed with Dr Cruz -consider repeating CT abd in 4-6 weeks if clinically relevant to monitor left paraspinal density I am signing off Thank you for your consultation, will follow up with you. Paloma Ochoa MD Infectious Diseases Specialist [facility] ([facility]) [phone] Subjective Date of service: 03/20/18 Principal diagnosis: Enterobacter bacteremia Interval history: Feels better. No complaints. No fever Microbiology: Blood cultures: 03/15 neg 03/12 HD center blood cx + Enterobacter cloacae sens to fortaz, gentamicin and levaquin/cipro Current Antimicrobials: cefepime 03/16 Prior Antimicrobials: Meropenem x 1 03/15 Objective - Exam Narrative Exam: Narrative exam: General appearance: PT in NAD. A&XO3. Conversant. Eyes: anicteric sclerae, moist conjunctivae; no lid-lag; PERRLA HENT: Atraumatic; oropharynx clear, with moist mucous membranes and no mucosal ulcerations/no oral thrush; normal hard and soft palate. Normal external ears. Neck: Trachea midline; supple, no thyromegaly or lymphadenopathy Lungs: CTA, with normal respiratory effort and no intercostal retractions CV: RRR Abdomen: Soft,NT/ND. No masses or hepatosplenomegaly. Extremities: No c/c/e. Skin: Normal temperature, turgor and texture; no rash, ulcers or subcutaneous nodules Psych: Appropriate affect, alert and oriented to person, place and time. Neuro: alert and oriented x 3. No-focal deficits. Lines: R chest HD catheter (exchanged as outpt on 03/15). Site has no erythema, tenderness or drainage. - Constitutional Vitals: Vital Signs Temp Pulse Resp BP Pulse Ox 98.1 F 72 20 122/84 97 03/20/18 07:46 03/20/18 07:46 03/20/18 07:46 03/20/18 07:46 03/20/18 07:46 Temperature -Last 24 Hours Temperature 98.1 F Temperature 97.8 F Temperature 98.2 F Temperature 98.4 F Temperature 98.6 F - Labs CBC & Chem 7: 03/18/18 05:39 03/19/18 05:45
[2018-03-20] MEDS ORDERED: LEVAQUIN PO SCH (11:00)
[2018-03-20 17:36] VITALS: BP 135/94
[2018-03-20] MEDS ORDERED: NACL 0.9 (PRIMING MACHINE ONLY DIALYSIS) MC ONE (17:53)
== END 2018-03-20 17:46 | disposition home or self-care (01) | DRG 314 ==
LOC: ED 13:50 → 3A 18:00
PROVIDERS: ADMIT Internal Medicine; ATTEND Internal Medicine
PROC: 5A1D70Z Performance of Urinary Filtration, Intermittent, Less than 6 Hours Per Day (ICD-10-PCS; principal; 2018-03-16)
PROC: 5A1D70Z Performance of Urinary Filtration, Intermittent, Less than 6 Hours Per Day (ICD-10-PCS; 2018-03-17)
PROC: 5A1D70Z Performance of Urinary Filtration, Intermittent, Less than 6 Hours Per Day (ICD-10-PCS; 2018-03-20)
DX: T82.7XXA Infection and inflammatory reaction due to other cardiac and vascular devices, implants and grafts, initial encounter (principal); N18.6 End stage renal disease; I12.0 Hypertensive chronic kidney disease with stage 5 chronic kidney disease or end stage renal disease; E87.1 Hypo-osmolality and hyponatremia; Z99.2 Dependence on renal dialysis; N28.89 Other specified disorders of kidney and ureter; Y83.8 Other surgical procedures as the cause of abnormal reaction of the patient, or of later complication, without mention of misadventure at the time of the procedure; Y92.89 Other specified places as the place of occurrence of the external cause
CPT/HCPCS: 36415; 71045; 74177; 76700; 80048; 80053; 81001; 82140; 82805; 83735; 84100; 85025; 85610; 87040; 87086; 93005; 93010; 94760; 96361; 96365; J0692; J0885; J1644; J2185; J7030; J7040; Q9967